=== PATIENT | female | born 1985 | race Caucasian/White ===

== ENCOUNTER 2023-10-03 16:55 | Emergency (ER) | payer BC, SELFPAY ==
[2023-10-03 16:57] VITALS: BP 139/94; PULSE 91; RESP 18; TEMP 36.4; O2SAT 97; BMI 33.6
--- NOTE | 2023-10-03 17:15 | XR_ITS ---
PROCEDURE INFORMATION: Exam: XR Left Hand Exam date and time: 10/03/2023 5:09 PM Age: 38 years old Clinical indication: Pain; Hand; Left TECHNIQUE: Imaging protocol: Radiologic exam of the left hand. Views: 3 or more views. COMPARISON: No relevant prior studies available. FINDINGS: Bones/joints: Osseous alignment is normal. No acute fracture. No significant arthritic change Soft tissues: Normal. IMPRESSION: Negative left hand
--- NOTE | 2023-10-03 17:29 | ED_ITS ---
Discharge Plan Disposition Patient Disposition: Home, Self-Care Condition: Good Prescriptions Prescriptions: New cephalexin 500 mg tablet 500 mg PO BID 7 Days Qty: 14 0RF Referrals Follow up/Referrals: Melyssa Tanner DO [Primary Care Provider] - See instructions Activity Restrictions/Add. Instructions Additional Instructions/Restrictions: keep area clean antibiotics as ordered Clinical Impressions Clinical Impression: Puncture wound Instructions Patient Instructions: DI for Puncture Wound Discharge ED [facility] [place] HPI General Stated complaint: AO 10/03/23 0730 laceration left hand Mode of Arrival: Ambulatory Source of Information: Patient Time Seen by Provider: 10/03/23 17:29 Description of Symptoms (Recalled from Triage Doc. by RN): cut left hand with swelling. top palm of hand. had blood spraying all over the place, juanita told pt that she hit a vein. HEENT Symptoms (Recalled from RN notes): No Resp Symptoms (Recalled from RN notes): No Skin Symptoms (Recalled from RN notes): No MS Symptoms (Recalled from RN notes): No Functional Status (Recalled from RN notes): na History of Present Illness Provider Complaint: 38 yr old female presents for puncture wound to left hand with swelling. 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 last tetanus vaccine 2021 Related Data Previous Rx's Medication Instructions Recorded cephalexin 500 mg tablet 500 mg PO BID 7 days #14 tabs 10/03/23 Allergies Allergy/AdvReac Type Severity Reaction Status Date / Time CILLINS AND MYCINS Allergy Unknown Uncoded 05/26/17 15:41 Worker's Comp Is this a Worker's Comp case?: No [facility] Disclaimer: The information contained in this section may have been updated after the patient was seen, as this information can be updated by other users. Social History , FINANCIAL ANALYST) Smoking Status: Smoker, status unknown alcohol intake: never current occupational status: employed Travel in the last 8 weeks: None ROS Obtained: Yes All systems reviewed & no additional complaints except as documented Constitutional Constitutional: Reports system reviewed and no additional complaints, except as documented Eyes Eyes: Reports system reviewed and no additional complaints, except as documented ENT Ears, Nose, Mouth, and Throat: Reports system reviewed and no additional complaints, except as documented Cardiovascular Cardiovascular: Reports system reviewed and no additional complaints, except as documented Respiratory Respiratory: Reports system reviewed and no additional complaints, except as documented Gastrointestinal Gastrointestingal: Reports system reviewed and no additional complaints, except as documented Musculoskeletal Musculoskeletal: Reports system reviewed and no additional complaints, except as documented Integumentary/Breasts Skin/Breast: Reports system reviewed and no additional complaints, except as documented, Reports as per HPI, Reports wounds and Reports other (puncture wound to palm, bruising noted) Endocrine Endocrine: Reports system reviewed and no additional complaints, except as documented Allergic/Immunologic Allergic/Immunologic: Reports system reviewed and no additional complaints, except as documented Physical Exam General General appearance: alert and in no apparent distress Head Head exam: atraumatic Eye Eye exam: Present normal appearance and PERRL ENT ENT exam: Present normal exam, normal oropharynx and mucous membranes moist Respiratory Respiratory exam: Present normal lung sounds bilaterally Cardiovascular Cardiovascular exam: Present regular rate and normal rhythm Expanded Upper Extremity Exam Left: Hand L/R front image: 2 1. other (puncture wound) Neurological Exam Neurological exam: Present alert and oriented X3 Skin Skin exam: Present warm Medical Decision Making Medical Records Medical records reviewed: Yes I reviewed the patient's medical records. [place] Inquiry Pt receiving controlled substance: No [place]ble was queried for this patient: No Vital Signs: 10/03/23 16:57 Temperature 97.6 F Temperature Source Oral Pulse Rate [Right Radial] 91 H Respiratory Rate 18 Blood Pressure [Right Arm] 139/94 H Blood Pressure Mean [Right Arm] 109 02 Sat by Pulse Oximetry 97 Oxygen Delivery Method Room Air Orders (Tests/Meds): ORDERS Category Date Time Status XR hand LT min 3V Stat Exams 10/03/23 17:15 Taken
[2023-10-03 18:04] VITALS: BP 139/94; PULSE 91; RESP 18; TEMP 36.4; O2SAT 97
== END 2023-10-03 18:00 | disposition home or self-care (01) ==
PROVIDERS: Emergency Provider Nurse Practitioner Family; PCP Student in an Organized Health Care Education/Training Program
DX: S61.432A Puncture wound without foreign body of left hand, initial encounter (principal); W45.8XXA Other foreign body or object entering through skin, initial encounter
CPT/HCPCS: 73130; 99204; 99212; G0463